=== PATIENT | female | born 1995 | race American Indian/Alaskan Native ===

== ENCOUNTER 2017-07-26 20:40 | Emergency (ER) | payer SELFPAY ==
[2017-07-26 20:53] VITALS: BP 112/70
[2017-07-26 21:26] LABS: HCG Qualitative,Urine Positive (Negative)
== END 2017-07-26 22:47 | disposition left against medical advice (07) ==
LOC: ED 20:40
DX: Z32.00 Encounter for pregnancy test, result unknown (principal); Z53.21 Procedure and treatment not carried out due to patient leaving prior to being seen by health care provider
CPT/HCPCS: 81025

== ENCOUNTER 2017-09-07 13:26 | Emergency (ER) | payer OTHER ==
[2017-09-07] MEDS ORDERED: TYLENOL PO ONE (17:07)
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
[2017-09-07 21:22] VITALS: BP 119/80
== END 2017-09-07 21:20 | disposition home or self-care (01) ==
LOC: ED 13:26
DX: O9A.211 Injury, poisoning and certain other consequences of external causes complicating pregnancy, first trimester (principal); S66.911A Strain of unspecified muscle, fascia and tendon at wrist and hand level, right hand, initial encounter; S56.911A Strain of unspecified muscles, fascia and tendons at forearm level, right arm, initial encounter; O99.511 Diseases of the respiratory system complicating pregnancy, first trimester; J45.909 Unspecified asthma, uncomplicated; Z88.0 Allergy status to penicillin; Z3A.10 10 weeks gestation of pregnancy; V89.2XXA Person injured in unspecified motor-vehicle accident, traffic, initial encounter; Y93.89 Activity, other specified; Y92.89 Other specified places as the place of occurrence of the external cause; Y99.8 Other external cause status
CPT/HCPCS: 36415; 76801; 76817; 84702